=== PATIENT | male | born 1990 | race African-American/Black ===

== ENCOUNTER 2020-01-09 15:01 | Inpatient (IN) | payer OTHER ==
[~2020-01-09] VITALS: Ht 180.3 cm; Wt 118.4 kg
[~2020-01-09 15:01] MED LIST: ACETAMINOPHEN-1 EAC1 PO; AMOXICILLIN 50500 MG PO; BENADRYL25 MG PO; CEFDINIR300 MG PO; CEFTRIAXON1 GM/50 M1 IVPB; CLEOCIN HCL150 MG PO; CYCLOBENZAPRINE5 MG PO; FLORANEX TABLE1 EACH PO; FLUCONAZOLE200 MG PO; LEVAQUIN 500 M500 M2 PO; LIDODERM1 EACH TRANSDERM; MEDROLDOSEPACK PO; MELOXICAM15 MG PO; MOBIC15 MG PO; Magic Mouthwash PO; OSELB75 PO; PROAIR HFA8.5 GM INH; TESSALON PERLE100 MG PO; TYLENOL WITH CO1 TA1 PO; VENTOLIN HFA 1818 GM INH
[2020-01-09 16:50] VITALS: BP 148/86
[2020-01-09 16:55] VITALS: BP 148/86
[2020-01-09 20:45] VITALS: BP 151/76
[2020-01-10] VITALS (23 sets, daily range): BP systolic 124–152; BP diastolic 66–94
--- NOTE | 2020-01-10 00:22 | NUR ---
ASSUMED PT CARE AT 1900, PT IS AWAKE, ALERT AND ORIENTED, MAKES NEEDS KNOWN, SR ON THE MONITOR, ST WITH INCREASED SOA WITH ACTIVITY, SEEN BY SHOULDER JOINER, ORDERES ACKNOWLEDGED AND ADMINISTERED ORDERED, C/O PAIN, MEDICATED PRN WITH PARTIAL RELIEF, ASSESSMENTS CHARTED, RESTING IN BED AT THIS TIME, WILL CONTINUE TO MONITOR
[2020-01-10 05:34] LABS: HEMOGLOBIN 10.4 gm/dL (14.0-18.0); MCH 24.3 pg (26.0-34.0); MCHC 31.4 g/dL (28.0-37.0); MCV 77.3 fL (80.0-100.0); RBC 4.27 mil/uL (4.50-6.00); WBC 11.2 thou/uL (4.0-11.0)
[2020-01-10 05:46] LABS: CALCIUM 9.7 mg/dL (8.5-10.1); CREATININE 1.1 mg/dL (0.7-1.3); POTASSIUM 4.1 mmol/L (3.5-5.1)
--- NOTE | 2020-01-10 09:15 | NUR ---
chart review. linda called to talk with pt, his answered stating he having trouble breathing but i can talk, then came in for visit. linda will cont following as needed for dc needs.
[2020-01-10 09:44] LABS: BE(vivo) 2.1 mmol/L (-2 to +3); HCO3 27.4 mmol/L (22.0-26.0); PCO2 45.7 mmHg (35.0-45.0); PO2 67.8 mmHg (80.0-100.0); pH 7.396 (7.360-7.450); sO2 93.4 % (92.0-98.0)
--- NOTE | 2020-01-10 12:00 | NUR ---
PATIENT RECEIVED TRANSFER FROM VIA BED AT 1035 WITH ACUTE RESP DISTRESS WITH STREP VEGTATION ON TRICUSPID VALVE FROM DENTAL ABCESS. PATIENT ASSESSED AND PLACED ON MONITORS. O2 AT 4L/NC. RESP RATE RAPID AND SHALLOW. AT BEDSIDE AND UPDATED TO STATUS.
--- NOTE | 2020-01-10 15:06 | HC ---
[facility] [place] [address] CONSULTATION Name: DANA JENKINS Room #: 239-P ADM IN M.R.#: [id number] Admission: 01/09/20 Attend Phys: Loyd Alford MD Discharge: Date of : 86 Report #: [id number] THIS REPORT FOR: cc: CHARLINE - No family physician/PCP CHARLINE - No family physician/PCP Juanjose Townsend ~ CC: Loyd OLIVIER physician/PCP FAWN Castaneda with Dr. Russ Baker dictating consultation note. HISTORY OF PRESENT ILLNESS: The patient was transferred to [facility] from [place] yesterday evening. Consult was put out for Cardiothoracic Surgery for evaluation of endocarditis with tricuspid valve vegetation and septic pulmonary emboli. The patient is a 29-year-old gentleman who has recently been admitted to the hospital with endocarditis secondary to Strep viridans. The patient has had a PICC line placed and has had ceftriaxone treatments through the PICC line. The patient states that he had started this treatment in November after being seen in the ER for shortness of breath. The patient has had 2 recent echos, which do show vegetation on the tricuspid valve and does have a normal ventricular ejection fraction. 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 Last known use of it per patient was in October. He did develop some abscess to the teeth and had recently seen a dentist as per patient while having an abscess and had a tooth removed. PAST MEDICAL HISTORY: Positive for lifelong asthma. PAST SURGICAL HISTORY: None. SOCIAL HISTORY: The patient is , has 4 children, smokes 2 packs of cigarettes a day for the last 15 years. Denies any alcohol use. Does state has used from time to time methamphetamines that he has smoked and in the remote past, has used cocaine, but does deny adamantly about any IV drug use. Mother and father are still living. Mother is 48 years old. Father is in his mid 50s. No reported past medical history with family. ALLERGIES: SHELLFISH. HOME MEDICATIONS: Albuterol. REVIEW OF SYSTEMS: The patient does complain of some fatigue. Denies any difficulty sleeping. Has occasional headaches. Denies vertigo or hearing loss. Does report shortness of breath with dyspnea on exertion. Denies orthopnea. Does have wheezing, cough. Denies any current chest pain, but does get some flashes of pleuritic chest wall pain with coughing. Denies any jaw pain, arm pain, did have a previous murmur. Unable to appreciate at this time. SKIN: Denies any rashes, psoriasis or eczema. Denies cold feet, night sweats [facility] [address] [place] [address] CONSULTATION Name: DANA JENKINS Alyce Room #: 239-P [facility] IN M.R.#: [id number] Admission: 01/09/20 Attend Phys: Loyd Alford MD Discharge: Date of : 86 Report #: [id number] or lack of concentration. Denies nausea, vomiting, diarrhea or constipation. Denies urinary frequency, bloody urine or painful urination. Denies seizures or neuropathy. Denies hallucination, depression or anxiety. Denies joint pain, stiffness or swelling. Denies any lupus, rheumatoid arthritis or celiac disease. PHYSICAL EXAMINATION: VITAL SIGNS: Blood pressure is 152/83, pulse is 107, respirations 18, temperature is 37.8, O2 sat of 96% on 2 liters of oxygen nasal cannula. GENERAL: The patient is well-developed, well-nourished, speaks 2-3 words at a time secondary to shortness of breath. There is no slurred speech or aphasia. HEENT: His eyes are PERRLA. He is normocephalic. Gaze appearing conjugate in all positions. No evidence of nystagmus. CARDIOVASCULAR: Shows regular rate and rhythm, S1, S2. No carotid bruits are identified. LUNGS: Clear on auscultation. ABDOMEN: Soft, nontender. Bowel sounds present in all 4 quadrants. SKIN: Has normal color. NEUROLOGIC: Cranial nerves 2-12 are examined and intact. The patient is alert and oriented x 3. LABORATORY DATA: As follows: Sodium 135, potassium 4.1, chloride is 97, CO2 is 29, BUN is 9, creatinine is 1.1. White blood count is 11.2, hemoglobin 10.4, hematocrit 33.0 and platelets are 393. ASSESSMENT: The patient with a previous bacteremia, endocarditis with tricuspid valve vegetation that previously grew out Streptococcus viridans, has been treated with ceftriaxone and a history of hepatitis C exposure, pulmonary septic emboli. I did not appreciate any pulmonary thrombus. PLAN: Medical management always tends to be primary on patients with tricuspid valve vegetation, would like to consult Dr. Zachariah Barkley to get him on board with this tricky situation. Echo has been recently done. Would anticipate getting normal IVs and having PICC line removed if patient is bacteremic and surgical intervention would be if medical management fails with persistent blood culture showing positive continuation of Strep viridans or persistent septic thrombi or heart failure. It is unlikely the patient has both septic emboli and thrombus type emboli, would also consider discontinuing the use of antiplatelet therapy, anticoagulation therapy due to the septic emboli can cause potential bleeding and we will continue to follow, but do not feel it is a surgical intervention at this time. <ELECTRONICALLY SIGNED> By: FAWN Contreras 01/10/20 1506 [id number] FAWN Contreras /nt
--- NOTE | 2020-01-10 19:36 | NUR ---
PATIENT SLOWLY PROGRESSING TOWARDS OUTCOME GOALS EVIDENT BY, PATIENT UP TO COMMODE AND NOTED TO HAVE DYSPNEA WITH EXERTION. TEMP MAX WAS 101.[address] BARBOSA AWARE. PICC LINE PULLED BY IV THERAPY AND PERIPHERAL IV INSERTED BY THEM. PATIENT REQUESTING TYLENOL FOR PAIN, STATES THAT HE DOES NOT LIKE HOW THE HYDROCODONE MAKES HIM FEEL. TEMP AND PAIN DECREASED WITH TYLENOL AND PATIENT SLEEPING AT INTERVALS. RESP REMAIN ELEVATED AND O2 SAT IN THE UPPER 90'S ON 3L/NC.
[2020-01-11] VITALS (20 sets, daily range): BP systolic 127–156; BP diastolic 67–106
[2020-01-11 05:30] LABS: HEMATOCRIT 32.6 % (42.0-52.0); HEMOGLOBIN 10.5 gm/dL (14.0-18.0); MCH 24.8 pg (26.0-34.0); MCHC 32.3 g/dL (28.0-37.0); MCV 76.6 fL (80.0-100.0); RBC 4.25 mil/uL (4.50-6.00); RDW 15.2 % (10.5-14.5); WBC 10.9 thou/uL (4.0-11.0)
[2020-01-11 06:13] LABS: CALCIUM 9.8 mg/dL (8.5-10.1)
--- NOTE | 2020-01-11 06:41 | NUR ---
PT HEART RATE BELOW 100 AFTER PAIN MEDICATIONS. PT COMPLAINING OF SOA AFTER ACTIVITY AND IS. PT ON 4L NC. CONTINUE TO MONITOR. CHART CHECK.
--- NOTE | 2020-01-11 11:50 | EKG ---
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
[2020-01-11 12:36] LABS: APTT 32.4 Seconds (24.5-32.8); INR 1.1; PROTIME 11.3 Seconds (9.3-11.4)
--- NOTE | 2020-01-11 18:47 | NUR ---
ASSUMED CARE OF PT AT 0700. PAIN WELL CONTROLLED WITH CURRENT MED REGIMEN. UP W/ STEADY GAIT. UNABLE TO PERFORM THORACENTESIS DUE TO LACK OF FLUID PRESENT ON ULTRASOUND. AFEBRILE. GOOD APPETITE. CALLS APPROPRIATELY. HR IMPROVED - 90-100's. WCM.
--- NOTE | 2020-01-11 20:07 | NUR ---
INITIAL ASSESSMENT COMPLETED, BREATHING TX GIVEN, PATIENT WAS ON 2L NASAL CANNULA AND CHANGED TO 1L NASAL CANNULA, O2 SAT REMAINS ABOVE 98%. PATIENT VOICED CONCERNS ABOUT BEING AFRAID OF HEIGHTS, WOULD LIKE WINDOW SHADES CLOSED AT ALL TIMES. PLAN TO WEAN OXYGEN OFF DISCUSSED WITH PATIENT, PATIENT VERBALIZED UNDERSTANDING. NO SIGN OF RESIPIRATORY DISTRESS AT THIS TIME. WILL CONTINUE TO MONITOR.
--- NOTE | 2020-01-11 22:12 | NUR ---
Pt received to room 243; report received and pt care assumed.
[2020-01-12] VITALS (22 sets, daily range): BP systolic 123–150; BP diastolic 74–95
--- NOTE | 2020-01-12 03:35 | NUR ---
ASSUMED PT CARE AT 0221. VSS. PT A&0X4. NO COMPLAINTS OF PAIN OR DISCOMFORT. PT RESTED POORLY OVERNIGHT, HE WAS ANXIOUS TO SLEEP BECAUSE HE STATED HAVING TROUBLE BREATHING; AND WANTING TO COUGH STUFF UP; PT ON ROOM AIR WITH SATS OF 92. HOWEVER RN NOTED BLOOD TINGED STRINGY SPUTUM. PT HAD GREAT U/0 >1500 THIS SHIFT. PT IS STABLE, WILL CONTINUE TO MONITOR. PT PROGRESSING WELL TOWADS POC GOALS
--- NOTE | 2020-01-12 13:48 | HC ---
[facility] [place] [address] [address] [place] [address] CONSULTATION Name: DANA JENKINS Room #: 243-P ADM IN M.R.#: [id number] Admission: 01/09/20 Attend Phys: Loyd Alford MD Discharge: Date of : 86 Report #: [id number] THIS REPORT FOR: cc: CHARLINE - Maggie family physician/PCP CHARLINE - No family physician/PCP Miguel Shen MD [facility] ~ CC: Loyd OLIVIER physician/PCP DATE OF SERVICE: 01/10/2020 HISTORY OF PRESENT ILLNESS: The patient is a 29-year-old black male who I was asked to see in the hospital today because of a history of endocarditis. The patient apparently had a heart murmur as a child. The patient was admitted to [facility] on 12/12/2019 complaining of shortness of breath. He also had some left-sided chest pain when he took a deep breath. He actually came to the Emergency Room and was told he had pneumonia, was given antibiotics. He was discharged from the Emergency Room, but readmitted 2 days later when blood cultures drawn in the Emergency Room were noted to be growing bacteria. He apparently had a recent infection of his tooth. Blood cultures were positive for streptococci. He underwent an echocardiogram that showed a vegetation on the tricuspid valve. He was felt to have tricuspid valve endocarditis. He was discharged with a PICC line in place. He was receiving IV antibiotics on a daily basis under the care of Dr. Chase Andujar with the Infectious Disease Service out of [place]. Apparently, the bacteria was sensitive to the antibiotics he had received. He was discharged, but 10 days later was readmitted when he complained of chest pain when he took a deep breath. He also noticed some shortness of breath. He denied any fever, chills, blurred vision, rash. When the patient was readmitted to [place] a week ago, he had a CT scan of the chest that showed evidence of septic emboli with cavitary lesions and a wedge-shaped infarction. Apparently, his antibiotics were felt to be appropriate and he had cleared his bacteremia. Repeat echocardiogram again showed the vegetation on tricuspid valve. The patient continued to have chest pain with a deep breath and shortness of breath. It is recommended he be evaluated by Cardiovascular Surgery. He was transferred from [place] to [facility] yesterday by ambulance. I was asked to see him for followup. He continues to have right-sided chest pain when he takes a deep breath. He does get short of breath when he exerts himself. He denied lightheadedness, blurred vision, abdominal pain and nausea. PAST MEDICAL HISTORY: Significant for no surgical procedures. There is no history of hypertension, diabetes, hyperlipidemia. He is on no medications. FAMILY HISTORY: Negative for heart disease. SOCIAL HISTORY: He is . He and his live in [place]. 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 No alcohol abuse. He quit smoking a month ago. He has a previous history of methamphetamine years ago. No IV drugs. REVIEW OF SYSTEMS: No history of stroke, asthma, liver disease, kidney disease, cancer, or chronic skin condition. PHYSICAL EXAMINATION: GENERAL: Revealed a young black male, appeared in mild distress secondary to chest pain. VITAL SIGNS: Blood pressure 130/80, pulse is 100. He is currently afebrile. HEENT: He was anicteric. No subconjunctival hemorrhages were noted. Mucous membranes were moist. NECK: Supple. CHEST: Clear to auscultation. CARDIOVASCULAR: Regular rate and rhythm, grade 2 systolic ejection murmur. No rub noted. ABDOMEN: Soft. EXTREMITIES: Had no edema. No splinter hemorrhages were noted. RADIOLOGICAL DATA: His workup when he transferred to [facility] this morning includes an ECG that showed a sinus tachycardia, rightward axis, incomplete right bundle-branch block. He had a recent venous duplex scan at [place] that showed no evidence of DVT in the upper arms as well as in the legs. His most recent chest x-ray showed normal heart size, otherwise mild interstitial markings. He had a CTA of the chest using a PE protocol at [facility] that showed right lower lobe emboli suggestive of septic emboli, a wedge-shaped infarction, possible pulmonary infarction, there was no venous emboli. LABORATORY DATA: His lab work was sodium 135, creatinine 1.0. Liver function studies were normal. His white blood cell count 10.2, hemoglobin 10.3. IMPRESSION AND RECOMMENDATIONS: 1. Tricuspid valve endocarditis. I would continue antibiotics. Indications for repair of the tricuspid valve would include recurrent emboli, bacteremia that is not cleared by appropriate antibiotics or refractory right-sided heart failure. 2. Previous tobacco abuse. 3. Septic pulmonary emboli. No indication for anticoagulation at this time. I would support shortness of breath with oxygen. 4. Previous history of illicit drug use. 5. History of schizophrenia. The patient is no longer seeing a psychiatrist at [address] [address] CONSULTATION Name: DANA JENKINS Room #: 243-P ADM IN M.R.#: [id number] Admission: 01/09/20 Attend Phys: Loyd Alford MD Discharge: Date of : 86 Report #: [id number] this time. 6. Anemia. <ELECTRONICALLY SIGNED> By: Miguel Shen MD, FACC 01/12/20 1348 1739 2209 Miguel Shen MD, FACC /nt
--- NOTE | 2020-01-12 18:45 | NUR ---
Pt is currenlty up in chair. Goal was to work on his breathing. Pt has been using IS with 500 ml volume obtained. Medicated twice for rib and back pain with adequate pain relief. Report given to RN assuming care. Pt is up in bedside chair.
--- NOTE | 2020-01-12 23:29 | NUR ---
PT WAS SITTING UP IN CHAIR AT BEGINNING OF SHIFT. TOLERATED WELL. HE DID BECOME SOA W/ EXERTION WHEN TRANSFERING BACK TO BED. BREATHING IMPROVED WITH REST. O2 SATS >90% ON 2L NC. C/O RIGHT SIDE NON-CARDIAC CHEST PAIN. MORPHINE GIVEN WITH COMPLETE PAIN RELIEF. PT RESTING IN BED AT THIS TIME. HE REQUESTED TO LEAVE OFF SCD'S SINCE HE IS ON LOVENOX. AFEBRILE. VSS. FALL PRECAUTIONS IN PLACE. RESPIRATIONS EVEN AND UNLABORED. PROGRESSING TOWARD POC GOALS. WILL CONTINUE TO MONITOR FURTHER.
[2020-01-13] VITALS (17 sets, daily range): BP systolic 120–150; BP diastolic 64–90
--- NOTE | 2020-01-13 03:33 | NUR ---
PT HAS BEEN SLEEPING MOST OF THE NIGHT. RESPIRATIONS EVEN AND UNLABORED. PAIN IMPROVED WITH PAIN MEDICATION GIVEN AT BEDTIME. NO MAJOR COMPLAINTS DURING THE NIGHT. PT DID HAVE LOW-GRADE TEMP AROUND 0300. PT REQUESTED HIS FAN BE TURNED ON IN THE ROOM. PROGRESSING TOWARD POC GOALS. WILL CONTINUE TO MONITOR FURTHER.
--- NOTE | 2020-01-13 13:02 | NUR ---
discussed during los, possible dc home today with cont iv outpt infusions at [facility]. pt going to need new picc line. cm spoke with camacho at [facility] outpt infusion center # [phone], "fax order to [phone] and fax to registration [id number]"/camacho. no iv abx orders for ID yet and per business systems advisor pt will be on same as before. no dc orders yet. will cont following as needed for dc needs.
--- NOTE | 2020-01-13 15:41 | NUR ---
VAT CONSULTED FOR A PICC FOR HOME ABX. 4FRSLPICC PLACED RUABRACHIAL. TIP CONFIRMED AT THE [facility] AND RELEASED FOR USE. PLEASE SEE NI FOR DETAILS
--- NOTE | 2020-01-13 16:15 | NUR ---
DISCHARGE: IV TEAM PLACED PICC FOR CONTINUED IV ABX THERAPY. CM SET UP IV ABX THERAPY THROUGH [facility]. WENT OVER DISCHARGE INSTRUCTIONS WITH PATIENT AND SPOUSE. BOTH EXPRESSED UNDERSTANDING. PICC REMAINS IN PLACE. TELEMETRY/OTHER MONITORING REMOVED. PATIENT DRESSED IN OWN SHORTS AND A GOWN. PATIENT LEFT UNIT VIA WHEELCHAIR. ESCORTED BY STAFF TO PERSONAL VEHICLE DRIVEN BY PATIENT'S SPOUSE. DISCHARGED TO HOME; SELF CARE WITH INSTRUCTIONS TO FOLLOW UP WITH PCP, DR JACKSON, AND [facility]. PATIENT BELONGINGS SENT WITH PATIENT.
== END 2020-01-13 16:13 | disposition home or self-care (01) | DRG 288 ==
LOC: 2N 15:01 → ICU 17:09 → 2N 17:09 → ICU 01-10 10:32
PROVIDERS: Hospitalist; Internal Medicine Pulmonary Disease; Nurse Practitioner Family; ADMIT Hospitalist; ATTEND Hospitalist
PROC: B548ZZA Ultrasonography of Superior Vena Cava, Guidance (ICD-10-PCS; principal; 2020-01-11)
PROC: 02HV33Z Insertion of Infusion Device into Superior Vena Cava, Percutaneous Approach (ICD-10-PCS; principal; 2020-01-11)
DX: I33.0 Acute and subacute infective endocarditis (principal); I26.90 Septic pulmonary embolism without acute cor pulmonale; J96.21 Acute and chronic respiratory failure with hypoxia; E87.1 Hypo-osmolality and hyponatremia; K08.409 Partial loss of teeth, unspecified cause, unspecified class; J45.909 Unspecified asthma, uncomplicated; Z20.828 Contact with and (suspected) exposure to other viral communicable diseases; F20.9 Schizophrenia, unspecified; D64.9 Anemia, unspecified; Z91.013 Allergy to seafood; Z87.01 Personal history of pneumonia (recurrent); Z79.899 Other long term (current) drug therapy; Z87.891 Personal history of nicotine dependence; Z88.1 Allergy status to other antibiotic agents; B95.4 Other streptococcus as the cause of diseases classified elsewhere; E87.8 Other disorders of electrolyte and fluid balance, not elsewhere classified
CPT/HCPCS: 10078; 10797